=== PATIENT | female | born 1995 | race Caucasian/White ===

== ENCOUNTER 2020-05-12 20:55 | Observation (INO) | payer BC, SELFPAY ==
--- NOTE | 2020-05-12 20:55 | OBADM ---
This patient, Phylicia Esquivel, admitted to the OB room Labor/Delivery/Recovery 104 for observation. Patient/family oriented to hospital policies and general routines including ID bracelet, bed and alarms, visiting hours, pain management, procedures, bathroom and other care routines, personal items, smoking policy, room service/diet, and visiting hours. Patient/Family are encouraged to report perceived risks to care and to ask questions if they do not understand what they are told or what they should do.
[2020-05-12 22:02] VITALS: TEMP 36.7
[2020-05-12 22:18] VITALS: BP 122/80; PULSE 110
[2020-05-12 22:26] VITALS: BMI 40.7
--- NOTE | 2020-05-15 12:39 | PM.OBTRLD ---
OB - Triage/Final Diagnosis Final Diagnosis (1) False labor: Code(s): O47.9 - False labor, unspecified Status: Acute
== END 2020-05-12 22:40 | disposition home or self-care (01) ==
PROVIDERS: Admitting Provider Obstetrics & Gynecology; Visit Provider Obstetrics & Gynecology
DX: O47.1 False labor at or after 37 completed weeks of gestation (principal); Z3A.39 39 weeks gestation of pregnancy
CPT/HCPCS: 59025; G0378; G0379

== ENCOUNTER 2020-05-13 18:36 | Inpatient (IN) | payer BC, SELFPAY ==
[2020-05-13] VITALS (16 sets, daily range): BP systolic 96–149; BP diastolic 60–105; PULSE 79–109; TEMP 36.3–36.9; BMI 40.7
--- NOTE | 2020-05-13 19:25 | WPDANESEPP ---
Anes - Eval Pre Procedure Procedure: Labor epidural Date/Time: 05/13/20 19:25 Surgeon: Jaime Delong M.D. Preop Diagnosis: pain during labor Pre Op Diagnosis: Induction of Labor Patient Data Age: 24 Gender: F Height: Weight: Last Vital Signs Pulse 109 H 05/13/20 19:16 BP 147/105 H 05/13/20 19:16 Allergies Allergy/AdvReac Type Severity Reaction Status Date / Time azithromycin [From Zithromax] Allergy Headache Verified 05/07/20 13:38 Home Medications Medication Instructions Recorded Confirmed Type PNV cmb#95-ferrous fumarate-FA 1 tablet PO DAILY 05/07/20 05/07/20 History [] Patient hx anesthesia problems: none Family hx anesthesia problems: none PMFSH Family History Family History (Updated 05/07/20 @ 13:39 by Byron Huerta RN) Other Unknown family medical history Social History Social History Substance use: never Spiritual care concerns: No Exam Day of Procedure 05/13/20 19:25
--- NOTE | 2020-05-13 19:29 | LDADM ---
This patient, Phylicia Esquivel, was admitted to Labor/Delivery/Recovery 107 on 05/13/20 at 18:36. Plans for labor, pain management and were discussed with patient. Patient/family oriented to hospital policies and general routines including ID bracelet, bed and alarms, visiting hours, pain management, procedures, bathroom and other care routines, personal items, smoking policy, room service/diet and guest tray routines, security routines, and visiting hours. Patient/Family are encouraged to report perceived risks to care and to ask questions if they do not understand what they are told or what they should do. See OBIX for further documentation.
[2020-05-13 19:42] LABS: Basophils Percent Auto 0.3 % (0.2-1.2); Eosinophils Absolute Auto 0.1 K/mm3 (0-0.3); Eosinophils Percent Auto 0.5 % (0-4.4); Hematocrit 35.5 % (37.0-47.0); Hemoglobin 11.5 g/dL (12.0-15.0); Immature Granulocyte Absolute 0.08 K/mm3 (0.00-0.031); Immature Granulocyte Percent A 0.6 % (0-0.5); Lymphocytes Absolute Auto 3.68 K/mm3 (0.9-3.2); Lymphocytes Percent Auto 27.1 % (18.3-44.2); Mean Corpuscular HGB Conc 32.4 g/dl (32-36); Mean Corpuscular Hemoglobin 26.1 pg (26-34); Mean Corpuscular Volume 80.7 fl (80-100); Mean Platelet Volume 10.5 fl (7.4-10.4); Monocytes Absolute Auto 0.7 K/mm3 (0.1-0.6); Monocytes Percent Auto 5.4 % (2.6-8.5); Neutrophils Percent Auto 66.1 % (45.5-73.1); Platelet Count Result 254 k/mm3 (150-375); Red Cell Distribution Width 15.1 % (11.5-14.5); White Blood Count 13.6 K/mm3 (4.5-10.0)
[2020-05-13] MEDS: DINOPROSTONE 10 MG VAG INSERT VAGINAL (20:05)
[2020-05-13 20:34] LABS: HIV 1/2 Ab P24 Ag Result Negative (Negative)
[2020-05-13 20:53] LABS: Rubella IgG Antibody 5.6 IU/ML
[2020-05-14] VITALS (190 sets, daily range): BP systolic 101–166; BP diastolic 34–133; PULSE 35–178; RESP 16–18; TEMP 36.2–36.8; O2SAT 88–100
[2020-05-14] MEDS: OXYTOCIN 30 UNITS/NS 500 ML 30 UNITS/500 ML BAG 6 UNITS IV CONT (05:12)
[2020-05-14] MEDS: LACTATED RINGERS 1,000 ML 125 ML IV CONT ×3 (05:12→09:33)
[2020-05-14 07:39] LABS: Rapid Plasma Reagin Non-Reactive (NonReactive)
[2020-05-14] MEDS: SODIUM CHLORIDE 0.9% IV 300 ML 600 ML I-UTERINE (11:42)
[2020-05-14] MEDS: ONDANSETRON INJ 4 MG/2 ML VIAL IV PUSH (12:50)
--- NOTE | 2020-05-14 14:57 | WPDHPUPDATE1 ---
History and Physical Update Update Date/Time: 05/14/20 14:57 History and Physical has been reviewed, including an updated exam of the patient. There are NO changes in the patient's condition. Risks, benefits, and alternatives have been discussed and questions answered. Patient agrees to proceed with procedure.
--- NOTE | 2020-05-14 14:57 | WPDOBADMIT ---
Obstetrics - Admit Note Admission Note: record reviewed. No pertinent additions to the history and/or any subsequent changes in the physical findings that are not consistent with the expected course of the were found. Additions to the history and/or subsequent changes in the physical findings follow. None.
--- NOTE | 2020-05-14 14:57 | PM.OBPRVD ---
OB - Delivery Note Procedure Route of delivery: Laceration description: Vaginal - 2nd Degree Delivery repair: chromic Specimen: No Estimated blood loss (mL): 300 Anesthesia type: Epidural Disposition: floor Narrative: Patient prepped in the usual manner for this procedure. Maternal expulsive efforts delivered vertex through a nuchal cord the rest of baby was also delivered without difficulty. Cord clamped and cut placenta delivered spontaneously. Cervix valuable inspected second-degree vaginal wall laceration was noted and repaired using 2 0 chromic in a running interlocking manner with good approximation hemostasis noted. Uterus was well contracted no significant bleeding no other abnormalities were noted. This point Procedure was considered terminated. Baby Weeks of gestation at delivery: 39 gender: Male Weight (pounds): 6 Weight (ounces): 15 score one minute: 9 score five minutes: 9
[2020-05-14] MEDS: OXYTOCIN 30 UNITS/NS 500 ML 30 UNITS/500 ML BAG 125 UNITS IV CONT (15:16)
[2020-05-14] MEDS: METHYLERGONOVINE MALEATE 0.2 MG/ML VIAL IM (16:08)
[2020-05-14] MEDS: IBUPROFEN 600 MG TABLET PO (17:05)
[2020-05-14] MEDS: BENZOCAINE 20% AER SPR (*SP) 56 GM CAN 1 SPRAY TOPICAL (17:06)
[2020-05-14] MEDS: WITCH HAZEL 40 PADS 1 PAD TOPICAL (17:06)
--- NOTE | 2020-05-14 17:36 | PC.NURSE ---
Patient transferred to post room #283 per wheelchair from labor and delivery. Support person present. Oriented to unit, room, information board, rooming in, admission packet and security measures. Patient verbalizes understanding.
[2020-05-14] MEDS: LANOLIN (LANSINOH) 7.5 GM CREAM 1 APPLIC TOPICAL (20:43)
[2020-05-15] MEDS: IBUPROFEN 600 MG TABLET PO ×2 (00:05→07:50)
[2020-05-15 05:17] LABS: Hematocrit 27.3 % (37.0-47.0); Hemoglobin 8.9 g/dL (12.0-15.0)
[2020-05-15] MEDS: MULTIVIT/MIN/PREN/FOL AC/IRON TABLET 1 TAB PO (07:50)
[2020-05-15] MEDS: DOCUSATE SODIUM 100 MG CAPSULE PO (07:50)
[2020-05-15] MEDS: POLYSACCHARIDE IRON COMPLEX 150 MG CAPSULE PO (07:51)
[2020-05-15 08:05] VITALS: BP 99/61; PULSE 80; RESP 18; TEMP 36.4; O2SAT 100
--- NOTE | 2020-05-15 08:56 | PM.OBDSVD ---
OB - DS: Summary OB Procedures : None OB Procedures Intrapartum: Spontaneous Vag Delivery OB Procedures: : None Time Spent with Patient Time attestation: Total time spent providing and/or coordinating discharge services: DS: Data Data Completed and Pending Labs on day of discharge: Labs from last 24 hours 05/15/20 05:11 Hgb 8.9 L Hct 27.3 L Discharge Plan Discharge Consulting providers: Saturnino Hernández Discharging Clinician: Jaime Delong Patient Disposition: Home, Self-Care Activity: as tolerated Diet: as tolerated Patient Instructions: How to Stop Smoking (DC), Antibiotic Form Stand Alone Forms: General Discharge Information Follow-up/Referrals: Jaime Delong MD [Physician] - 3 Weeks Discharge Medications: New hydrocodone-acetaminophen 5-325 mg Tablet 1 tab PO Q3H PRN (Reason: Moderate Pain (4-6)) Qty: 12 RF: 0 ibuprofen 600 mg Tablet 600 mg PO Q6H PRN (Reason: Cramping) Qty: 30 RF: 0 Continued PNV cmb#95-ferrous fumarate-FA [] 28 mg iron- 800 mcg Tablet 1 tablet PO DAILY RF: 0 Date of admission: 05/13/20 18:36 Primary Care Provider: PHYSICIAN,FLIGHT SUPERINTENDENT Admitting Provider: Jaime Delong Attending physician on admission: Jaime Delong
--- NOTE | 2020-05-15 10:12 | WPDANLDPN2 ---
Anes-Prog Note L&D Date/Time: 05/15/20 10:12 Comfortable throughout: labor and delivery Neuraxial method: epidural Epidural/Spinal procedure site: clean & non-tender Neuro status: Neuro function grossly intact. Cardiovascular status: normal Respiratory status: normal Airway patency: baseline Mental status: baseline Post-Op hydration status: normal Vital Signs: Last Vital Signs Temp 36.4 C 05/15/20 08:05 Pulse 80 05/15/20 08:05 Resp 18 05/15/20 08:05 BP 99/61 L 05/15/20 08:05 Pulse Ox 100 05/15/20 08:05 I/O: Intake & Output 05/14/20 05/15/20 05/15/20 23:59 07:59 15:59 Intake Total 1000 Output Total 416 Balance 584 Post-procedural complaints: none Patient feedback: Patient satisfied with anesthetic care.
[2020-05-16 13:27] VITALS: BP 120/77; PULSE 95; RESP 20; TEMP 36.9; O2SAT 99
== END 2020-05-15 17:09 | disposition home or self-care (01) | DRG 807 ==
LOC: ANHLDR 18:53 → ANHOB2 05-14 17:40
PROVIDERS: Admitting Provider Obstetrics & Gynecology; Visit Provider Obstetrics & Gynecology
DX: O77.0 Labor and delivery complicated by meconium in amniotic fluid (principal); Z37.0 Single live birth; Z3A.40 40 weeks gestation of pregnancy; O70.1 Second degree perineal laceration during delivery; O69.81X0 Labor and delivery complicated by cord around neck, without compression, not applicable or unspecified
CPT/HCPCS: 36415; 59025; 85014; 85018; 85025; 86592; 86703; 86762; 86850; 86900; 86901; A9270; G0378; G0379; G0432; J2210; J2405; J2590; J2795; J3010; J7030; J7120